=== PATIENT | female | born 1940 | race Caucasian/White ===

== ENCOUNTER 2020-11-21 11:37 | Emergency (ER) | payer OTHER, MEDICARE, SELFPAY ==
--- NOTE | ~2020-11-21 | CT_ITS ---
EXAMINATION: CT diagnostic chest w con DATE: 11/21/2020 14:03 INDICATION: Chest pain TECHNIQUE: Transaxial computed tomographic images of the chest were obtained after the administration of 75 cc of Omnipaque 350 intravenous contrast. The dose-length product (DLP) was 239.97 mGy-cm. Ite rative reconstruction was used. COMPARISON: None FINDINGS: The lungs are free of acute opacities. There is no pleural effusion or pneumothorax. There is a 2 mm nodule in the left upper lobe. There is a massive hiatal hernia with the stomach, part of t he transverse colon, and the body and tail of the pancreas intrathoracic in location. The heart size is normal. There are no pathologically enlarged thoracic lymph nodes. There is mild thoracic spondylo sis. IMPRESSION: 1. No acute cardiopulmonary abnormality. 2. Massive hiatal hernia containing the stomach, part of the transverse colon, and the body and tail of the pancreas. Reviewed, dictated and finalized at location A.
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
[2020-11-21 11:33] VITALS: BP 154/96; PULSE 75; RESP 16; TEMP 36.6; O2SAT 98
[2020-11-21 12:09] VITALS: BP 158/77; PULSE 65; RESP 16; O2SAT 97
--- NOTE | 2020-11-21 12:15 | ECG_ITS ---
Measurements Intervals [place] Rate: 63 P: -7 CO: 116 QRS: 40 QRSD: 93 T: 73 QT: 428 QTc: 439 Interpretive Statements SINUS RHYTHM WITH SHORT CO INTERVAL BASELINE ARTIFACT- II, III, AVF BORDERLINE ECG Electronically Signed On 11-21-2020 13:00:58 CDT by Hieu Hines D.O.
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
[2020-11-21 13:05] LABS: Basophils Absolute Auto 0.1 K/mm3 (0.0-0.1); Basophils Percent Auto 0.6 % (0.2-1.2); Eosinophils Absolute Auto 0.1 K/mm3 (0-0.3); Eosinophils Percent Auto 1.5 % (0-4.4); Hematocrit 39.2 % (37.0-47.0); Hemoglobin 12.6 g/dL (12.0-15.0); Immature Granulocyte Absolute 0.03 K/mm3 (0.00-0.031); Immature Granulocyte Percent A 0.3 % (0-0.5); Lymphocytes Absolute Auto 1.43 K/mm3 (0.9-3.2); Mean Corpuscular HGB Conc 32.1 g/dl (32-36); Mean Corpuscular Hemoglobin 27.6 pg (26-34); Mean Platelet Volume 10.7 fl (7.4-10.4); Monocytes Absolute Auto 0.7 K/mm3 (0.1-0.6); Monocytes Percent Auto 7.6 % (2.6-8.5); Neutrophils Absolute Auto 6.6 K/mm3 (1.3-6.7); Platelet Count Result 266 k/mm3 (150-375); Red Blood Count 4.56 M/mm3 (4.2-5.4); Red Cell Distribution Width 13.2 % (11.5-14.5); White Blood Count 8.9 K/mm3 (4.5-10.0)
[2020-11-21 13:18] LABS: Alanine Aminotransferase 10 U/L (4-35); Albumin Level 4.6 g/dL (3.5-5.1); Alkaline Phosphatase 100 U/L (38-126); Anion Gap 9 mmol/L (8-16); Aspartate Amino Transferase 27 U/L (14-36); Bilirubin,Total 0.5 mg/dL (0.2-1.3); Blood Urea Nitrogen 11 mg/dL (7-17); Calcium 9.4 mg/dL (8.4-10.2); Carbon Dioxide 28 mmol/L (22-30); Chloride 106 mmol/L (98-107); Estimated CRCL calculation 40 ml/min; Estimated Glomerular Filt Rate 54; Glucose 104 mg/dL (65-105); Potassium 4.6 mmol/L (3.4-5.0); Sodium 143 mmol/L (137-145)
[2020-11-21 15:16] VITALS: BP 174/82; PULSE 72; RESP 18; O2SAT 100
== END 2020-11-21 15:17 | disposition home or self-care (01) ==
PROVIDERS: Emergency Provider Emergency Medicine; PCP Family Medicine
DX: S20.219A Contusion of unspecified front wall of thorax, initial encounter (principal); I10 Essential (primary) hypertension; V43.52XA Car driver injured in collision with other type car in traffic accident, initial encounter; Y92.410 Unspecified street and highway as the place of occurrence of the external cause
CPT/HCPCS: 36415; 70450; 71260; 80053; 85025; 93005; 99284; Q9967